=== PATIENT | female | born 1955 | race Caucasian/White ===

== ENCOUNTER 2018-09-09 10:38 | Observation (INO) ==
[2018-09-09 11:30] LABS: Basophils % 0.4 % (0.0-0.8); Eosinophils # 0.1 10*3/uL (0.0-0.87); Eosinophils % 0.9 % (0.00-10.9); Hematocrit 43.2 VOL% (35.7-47.0); Hemoglobin 14.2 GM/DL (12.0-16.0); Immature Granulocytes % 0.4 %; Immature Granulocytes Absolute 0.03 #; Lymphocytes # 2.1 10*3/uL (1.4-4.0); Lymphocytes % 27.2 % (21.3-54.2); Mean Corpuscular HGB Conc 32.9 GM/DL (32-36); Mean Corpuscular Volume 92.7 FL (87-102); Monocytes % 7.3 % (1.7-12.7); Neutrophils % 63.8 % (38.7-73.9); Platelet Count 358 T/CUMM (130-400); Red Blood Count 4.66 MC/CUMM (3.8-5.5); Red Cell Distribution Width 12.6 % (9.3-17.3); White Blood Count 7.7 T/CUMM (4-12)
[2018-09-09 11:43] LABS: INR 0.9; Partial Thromboplastin Time 22.3 SECS (0-40)
[2018-09-09 11:55] LABS: Alanine Aminotransferase 35 U/L (13-56); Albumin 4.4 G/DL (3.4-5.0); Alkaline Phosphatase 132 U/L (45-117); Aspartate Amino Transferase 25 U/L (0-37); Blood Urea Nitrogen 18 MG/DL (7-18); Calcium 9.7 MG/DL (8.5-10.1); Glucose 317 MG/DL (74-106); Total Protein 7.5 G/DL (6.4-8.3)
[2018-09-09] MEDS ORDERED: SODIUM CHLORIDE 0.9% 1,000 ML IV STA (12:13)
[2018-09-09] MEDS ORDERED: LABETALOL 20 MG/4 ML SYRINGE IV PRN (13:15)
[2018-09-09] MEDS ORDERED: ASPIRIN 300 MG SUPP RECTAL SCH (13:20)
[2018-09-09] MEDS ORDERED: GLUCAGON 1 MG VIAL IM PRN (13:25)
[2018-09-09] MEDS ORDERED: DEXTROSE 50% 25 GM/50 ML VIAL IV PRN (13:25)
[2018-09-09] MEDS ORDERED: DEXTROSE 50% 25 GM/50 ML SYRINGE IV PRN (14:03)
[2018-09-09 14:04] LABS: Risk Ratio 5.86; VLDL CHOLESTEROL 36.8 MG/DL
[2018-09-09 14:19] LABS: Apearance,Urine CLEAR (Clear); Bacteria,Urine Occasional /HPF (Few); Bilirubin,Urine Negative (Negative); Blood, Urine Small mg/dL (Negative); Glucose,Urine (UA) >=500 mg/dL (Negative); Ketones,Urine 20 mg/dL (Negative); Nitrite,Urine Negative (Negative); Protein,Urine Negative; RBC,Urine 1 /HPF (0-4); Squamous Epithelial Cell,Urine Occasional /HPF (0-10); Urine Color Colorless (Yellow); Urine Specific Gravity 1.008 (1.001-1.035); Urine Urobilinogen < 2.0 EU/DL (0.2-1.0); WBC,Urine <1 /HPF (0-6)
[2018-09-09] MEDS ORDERED: ASPIRIN 325 MG TABLET PO STA (14:19)
[2018-09-09] MEDS: ENOXAPARIN 40 MG/0.4 ML SYRINGE SUBCUT SCH (16:54)
[2018-09-09] MEDS: SODIUM CHLORIDE 0.9% 1,000 ML IV SCH (16:57)
[2018-09-09] MEDS: NICOTINE 14 MG/24 HR PATCH TRANSDERM SCH (18:58)
[2018-09-09] MEDS: INSULIN REGULAR 100 UNIT/ML SUBCUT SCH ×2 (18:58→21:35)
[2018-09-09] MEDS: metFORMIN 500 MG TABLET PO SCH (18:58)
[2018-09-09] MEDS ORDERED: ROSUVASTATIN 20 MG TABLET PO SCH (21:00)
[2018-09-10] MEDS: SODIUM CHLORIDE 0.9% 1,000 ML IV SCH ×2 (02:11→15:42)
[2018-09-10] MEDS ORDERED: ASPIRIN 325 MG TABLET PO SCH (09:00)
[2018-09-10] MEDS: metFORMIN 500 MG TABLET PO SCH (09:23)
[2018-09-10] MEDS: INSULIN REGULAR 100 UNIT/ML SUBCUT SCH ×2 (09:24→13:11)
[2018-09-10] MEDS: NICOTINE 14 MG/24 HR PATCH TRANSDERM SCH (09:32)
[2018-09-10 11:59] VITALS: BP 136/85
[2018-09-10] MEDS: ENOXAPARIN 40 MG/0.4 ML SYRINGE SUBCUT SCH (15:42)
== END 2018-09-10 15:15 | disposition home or self-care (01) ==
LOC: N.EDINP 10:38 → N.ED 10:38 → N.2E 17:10
PROVIDERS: ADMIT Hospitalist; ATTEND Hospitalist